=== PATIENT | female | born 1970 | race Caucasian/White ===

== ENCOUNTER 2023-06-06 16:32 | Observation (INO) | payer OTHER, SELFPAY ==
[2023-06-06] VITALS (7 sets, daily range): BP systolic 93–111; BP diastolic 56–73; PULSE 73–79; RESP 16–21; TEMP 36.6; O2SAT 97–100; BMI 21.4
--- NOTE | 2023-06-06 16:45 | XRR_ITS ---
PROCEDURE INFORMATION: Exam: XR Chest Exam date and time: 06/06/2023 5:08 PM Age: 52 years old Clinical indication: Pain; Chest pressure; Additional info: Cp TECHNIQUE: Imaging protocol: Radiologic exam of the chest. Views: 1 view. COMPARISON: CR XR ribs LT mn 3V w CXR1V [id number] 09/08/2019 10:54 PM FINDINGS: Lungs: Unremarkable. No consolidation. Pleural spaces: Unremarkable. No pleural effusion. No pneumothorax. Heart/Mediastinum: Unremarkable. No cardiomegaly. Bones/joints: Unremarkable. XR/XR chest 1V portable [id number] IMPRESSION: No acute findings.
--- NOTE | 2023-06-06 17:12 | ECG_ITS ---
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 Measurements Intervals [place] Rate: 72 P: 55 GA: 136 QRS: 58 QRSD: 81 T: 87 QT: 395 QTc: 434 Interpretive Statements SINUS RHYTHM WITH SINUS ARRHYTHMIA MODERATE ST DEPRESSION [0.05+ mV ST DEPRESSION] T WAVE INVERSION, CONSIDER LATERAL ISCHEMIA Compared to ECG 06/06/2023 16:44:27 No significant changes Electronically Signed On 06-07-2023 13:57:05 CDT by Dipti Mckenna M.D. [id number]
[2023-06-06] MEDS: aspirin 81 mg Chew Tablet 324 MG PO (17:27)
[2023-06-06] MEDS: nitroglycerin 1 gm/inch oint Pkt 0.5 INCH TOPICAL (17:28)
[2023-06-06] MEDS: morphine 4 mg/mL SDV 1 mL IVP (17:29)
[2023-06-06] MEDS: ondansetron 2 mg/ML SDV 2 mL 4 MG IVP (17:30)
[2023-06-06 17:36] LABS: Basophils % 0.3 %; Eosinophils # 0.1 10^3/uL (0.0-0.8); Eosinophils % 0.6 %; Hematocrit 42.7 % (36-47); Lymphocytes # 3.6 10^3/uL (0.8-4.8); Lymphocytes % 27.8 %; Mean Corpuscular HGB Conc 33.5 g/dL (30-55); Mean Corpuscular Volume 92.4 fl (85-98); Mean Platelet Volume 10.5 fL (7.4-10.4); Monocytes # 0.6 10^3/uL (0.2-0.9); Monocytes % 4.7 %; Neutrophils # 8.45 10^3/uL (1.8-7.7); Neutrophils % 65.7 %; Nucleated Red Blood Cells % 0 %; Platelet Count 315 10^3/cmm (157-399); Red Blood Count 4.62 10^6/uL (3.85-5.65); Red Cell Distribution Width 12.9 % (12.1-15.1); White Blood Count 12.86 10^3/uL (3.29-11.43)
[2023-06-06 17:48] LABS: INR 0.95 (0.8-1.2); Partial Thromboplastin Time 23.8 SECONDS (23.9-36.7)
[2023-06-06 17:51] LABS: Alanine Aminotransferase 16 U/L (0-33); Albumin Level 4.4 g/dL (3.5-5.2); Alkaline Phosphatase 124 U/L (35-105); Aspartate Amino Transferase 16 U/L (0-32); Blood Urea Nitrogen 11 mg/dL (6-20); Carbon Dioxide 17 mmol/L (22-29); Chloride 104 mmol/L (98-107); Globulin 2.6 g/dL (1.3-4.6); Glucose 156 mg/dL (65-115); Osmolality Calculated 291 mOsm/kg (285-295); Sodium 139 mmol/L (136-145); Total Bilirubin 0.3 mg/dL (0.15-1.2); Troponin(5th) Baseline 6 ng/L (0-10)
[2023-06-06] MEDS: sodium chloride 0.9% 1,000 ML 999 ML IV (18:39)
--- NOTE | 2023-06-06 18:45 | ECG_ITS ---
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 Measurements Intervals [place] Rate: 71 P: 43 CA: 133 QRS: 63 QRSD: 85 T: 98 QT: 402 QTc: 438 Interpretive Statements SINUS RHYTHM WITH SINUS ARRHYTHMIA MODERATE ST DEPRESSION [0.05+ mV ST DEPRESSION] No previous ECG available for comparison Electronically Signed On 06-06-2023 19:29:44 CDT by Venkata Garcia M.D. [email or web address].[employer]/store/Om/[id number]
--- NOTE | 2023-06-06 19:31 | W.ED.CHESTPA ---
HPI - Chest Pain General: Chief Complaint: Chest Pain Stated Complaint: tingling in left hand,chest pains Time Seen by Provider: 06/06/23 17:18 History of Present Illness: 52-year-old female with history of tobacco abuse presents emergency room with sudden onset chest pain that started around 3:30 PM while at a local nail salon. Continue a friend patient developed chest pain and described the pain as substernal chest pain with severity of 7 out of 10 and became diaphoretic and started vomiting. Upon present emergency room patient was having pain and described the pain as sharp sensation with severity of 2 out of 10. Patient revealed some nausea but no vomiting at this time. Patient denies any history of coronary disease, coughing, coughing up blood or vomiting blood. Leg swelling or calf tenderness. No sick contacts or foreign travel. Associated symptoms: Reports diaphoresis; Deny fever(s), palpitations or syncope Review of Systems General: Reports: 10 or more systems reviewed and unremarkable except in HPI and below Const: Reports: diaphoresis; Denies: fever(s), chills, body aches, change in appetite, change in weight, fatigue or malaise Card: Reports: chest pain; Denies: palpitations, irregular heart rhythm, edema, swelling of feet/ankles, lightheadedness, syncope, pre-syncope, dyspnea on exertion, orthopnea, leg pain with exertion or acrocyanosis Neuro: Denies: headache(s), numbness in extremities, sensory changes or lack of coordination Physical Exam Const: COMMON NORMALS: no acute distress, average body habitus, patient oriented x3, no limitations, healthy appearing, alert and well nourished HENMT: COMMON NORMALS: normocephalic, atraumatic, hearing grossly normal bilaterally, external ears normal, EAC's normal, TM's normal bilaterally, Normal external nose present, Normal nasal mucous membranes and turbinates present, moist oral mucous membranes, oropharynx normal, dentition normal and gingiva normal HEAD & SCALP: normocephalic and atraumatic NOSE: Normal external nose present and Normal nasal mucous membranes and turbinates present EXTERNAL EAR: Yes external ears normal EXTERNAL AUDITORY CANAL: EAC's normal TYMPANIC MEMBRANE: TM's normal bilaterally Neck/C-Spine: COMMON NORMALS: full ROM, no lymphadenopathy, supple, no meningeal signs, no JVD, Thyroid normal and No carotid bruits THYROID: Thyroid normal Chest: COMMONS NORMALS: normal inspection of the chest, normal palpation of entire chest wall, normal inspection of the breasts and normal palpation of the breasts Breast/axilla inspection: Yes normal inspection of the breasts BREAST/AXILLA PALPATION: Yes normal palpation of the breasts Resp: COMMON NORMALS: normal respiratory effort, No retractions, No use of accessory muscles, clear to auscultation bilaterally and percussion normal AUSCULTATION: clear to auscultation bilaterally PERCUSSION: percussion normal Cardio: COMMON NORMALS: no JVD Extremity: COMMON NORMALS: normal to inspection, full ROM, capillary refill normal, no joint enlargement, no clubbing, cyanosis or edema, no calf tenderness and no pedal edema Neuro: COMMON NORMALS: patient oriented x3 SENSORIUM/ORIENTATION: Yes alert MENINGEAL SIGNS: Yes no meningeal signs Course Vital Signs: Vital signs: Vital Signs Pulse Rate 74 06/06/23 19:03 Respiratory Rate 21 H 06/06/23 17:29 Blood Pressure 98/66 06/06/23 19:03 Pulse Oximetry 97 06/06/23 19:03 Oxygen Delivery Me thod Room Air 06/06/23 19:03 MDM - Chest Pain Medical Decision Making Patient made comfortable emergency room and had extensive work-up done including CBC, CMP and serial troponin. KG was reviewed and discussed with family. There was a concern for the EKG. I discussed the EKG finding with patient and family. Will be admitted for further evaluation and treatment. I discussed patient with the hospitalist. Will consult practice management consultant for further evaluation and treatment. Differential Diagnosis Likely acute massive pulmonary embolism, acute respiratory failure, acute myocardial infarction, cardiac arrest and sudden cardiac Lab Data 06/06/23 17:00 06/06/23 17:00 Radiology Impressions Chest X-Ray 06/06/23 16:45 IMPRESSION: No acute findings. Laboratory Results WBC 12.86 10^3/uL (3.29-11.43) H 06/06/23 17:00 RBC 4.62 10^6/uL (3.85-5.65) 06/06/23 17:00 Hgb 14.30 g/dL (11.27-16.99) 06/06/23 17:00 Hct 42.7 % (36-47) 06/06/23 17:00 MCV 92.4 fl (85-98) 06/06/23 17:00 MCH 31.0 pg (27-33) 06/06/23 17:00 MCHC 33.5 g/dL (30-55) 06/06/23 17:00 RDW 12.9 % (12.1-15.1) 06/06/23 17:00 Plt Count 315 10^3/cmm (157-399) 06/06/23 17:00 MPV 10.5 fL (7.4-10.4) H 06/06/23 17:00 Neut % (Auto) 65.7 % 06/06/23 17:00 Lymph % (Auto) 27.8 % 06/06/23 17:00 [place] % (Auto) 4.7 % 06/06/23 17:00 Eos % (Auto) 0.6 % 06/06/23 17:00 Baso % (Auto) 0.3 % 06/06/23 17:00 Neut # (Auto) 8.45 10^3/uL (1.8-7.7) H 06/06/23 17:00 Lymph # (Auto) 3.6 10^3/uL (0.8-4.8) 06/06/23 17:00 [place] # (Auto) 0.6 10^3/uL (0.2-0.9) 06/06/23 17:00 Eos # (Auto) 0.1 10^3/uL (0.0-0.8) 06/06/23 17:00 Baso # (Auto) 0.0 10^3/uL (0.0-0.1) 06/06/23 17:00 Nucleated RBC % (auto) 0 % 06/06/23 17:00 Nucleated RBCs # 0.0 /100WBC 06/06/23 17:00 PT 12.90 SECONDS (12.1-14.9) 06/06/23 17:00 INR 0.95 (0.8-1.2) 06/06/23 17:00 APTT 23.8 SECONDS (23.9-36.7) L 06/06/23 17:00 Sodium 139 mmol/L (136-145) 06/06/23 17:00 Potassium 4.0 mmol/L (3.5-5.1) 06/06/23 17:00 Chloride 104 mmol/L (98-107) 06/06/23 17:00 Carbon Dioxide 17 mmol/L (22-29) L 06/06/23 17:00 Anion Gap 22.0 (5-19) H 06/06/23 17:00 BUN 11 mg/dL (6-20) 06/06/23 17:00 Creatinine 1.0 mg/dL (0.5-0.9) H 06/06/23 17:00 GFR Calculation 58.0 mL/min (90-130) L 06/06/23 17:00 Glucose 156 mg/dL (65-115) H 06/06/23 17:00 Calculated Osmolality 291 mOsm/kg (285-295) 06/06/23 17:00 Calcium 10.0 mg/dL (8.5-10.5) 06/06/23 17:00 Total Bilirubin 0.3 mg/dL (0.15-1.2) 06/06/23 17:00 AST 16 U/L (0-32) 06/06/23 17:00 ALT 16 U/L (0-33) 06/06/23 17:00 Alkaline Phosphatase 124 U/L (35-105) H 06/06/23 17:00 Troponin T Baseline 6 ng/L (0-10) 06/06/23 17:00 Total Protein 7.0 g/dL (6.6-8.7) 06/06/23 17:00 Albumin 4.4 g/dL (3.5-5.2) 06/06/23 17:00 Globulin 2.6 g/dL (1.3-4.6) 06/06/23 17:00 XR interpretation done by ED provider, pending radiology final review EKG Data EKG 1: Interpretation: Patient was sinus bradycardia with a rate of 72. There was ST old inversion in V1 V2 and aVR. ST depression V5 V2. 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
[2023-06-06 20:41] LABS: Troponin 5 2HR 81.38 ng/L (0-10)
[2023-06-06 20:44] LABS: Troponin 5 2HR Delta 75.38 ABS# (0-10)
[2023-06-06] MEDS: enoxaparin 60 mg/0.6 mL Syringe 50 MG SUBCUT (20:45)
--- NOTE | 2023-06-06 20:54 | P.HP_ITS ---
Providers/Chief Complaint Admitting Physician: Karime Hernandez MD Chief Complaint: tingling in left hand,chest pains History of Present Illness Sadia Cifuentes is a 52 year old female with no significant past medical history but active smoker less than a pack a day since last 20 years presented with complaint of chest pain, uneasiness nausea vomiting and diarrhea since this afternoon. She reports she was seen by meals per when she suddenly started feeling burning midsternal chest pain 10 x 10, nonradiating, continuous for more than 30 minutes, no relieving factors and associated with nausea and vomiting x2, and diarrhea x1. Denies any fever cough cold shortness of breath bowel or urinary complaints but reports eating leftover restaurant food this morning. She never had similar complaints in the past Review of Systems Narrative: As per HPI Medications/Allergies Home Medications Medication Instructions Recorded Confirmed Last Taken Type No Known Home Medications 06/06/23 06/06/23 Unknown History Allergies Allergy/AdvReac Type Severity Reaction Status Date / Time No Known Allergies Allergy Verified 06/06/23 16:52 Vitals/I&O/Wt Last Vital Signs Pulse 74 06/06/23 19:03 Resp 21 H 06/06/23 17:29 BP 98/66 06/06/23 19:03 Pulse Ox 97 06/06/23 19:03 O2 Del Method Room Air 06/06/23 20:39 06/06/23 06/06/23 06/06/23 06:59 14:59 22:59 Intake Total 1000 / 1000 Balance 1000 / 1000 Weight last 48 hrs Weight 55.747 kg Weight 49.895 kg Physical Exam Narrative: She is alert awake oriented x3 not in acute distress, thin built chest pain resolved but still had vomiting x1 in ER. Chest clear to auscultation bilaterally Cardiovascular normal heart sounds regular rhythm Abdomen soft nontender nondistended normal bowel sounds Extremities no pedal edema seen Data 06/06/23 17:00 06/06/23 17:00 CXR: Radiologist's impression: No acute findings EKG 1: My Interpretation: Normal sinus rhythm Normal axis ST depressions in lead I, aVL, V1 and V2. A&P Assessment and plan (1) NSTEMI (non-ST elevated myocardial infarction): Plan 52-year-old female with no significant past medical history but active smoker presented with midsternal chest pain nausea and vomiting since this afternoon and was found to have ST depressions in EKG and elevated troponins secondary to NSTEMI Nausea and vomiting likely secondary to acute gastroenteritis Will give IV fluids normal saline at 75 mL/h IV Pepcid 20 mg every 12 hours and IV Zofran 4 mg every 8 hours for nausea and vomiting Liquid diet for now EKG changes and elevated troponins , cannot rule out NSTEMI Dr. Garcia cardiology, aware of the patient We will follow-up serial troponins and EKG Received aspirin 325 mg , nitroglycerin patch 0.5 and morphine 2 mg in ER. Will give subcutaneous Lovenox 50 mg x 1 dose now, atorvastatin 40 mg x 1. Continue to monitor for now. She is full code Attestations Medical Necessity Statement*: She needs continued hospitalization for 2 days for further work-up for elevated troponins and EKG changes Time Spent in Patient Care: 30 minutes Coding Level of Care Code [facility] N[facility]I (non-ST elevated myocardial infarction) I21.4 Time Spent (min) 30
[2023-06-06] MEDS: sodium chloride 0.9% 1,000 ML 75 ML IV (21:46)
[2023-06-06] MEDS: atorvastatin 40 mg Tablet PO (21:48)
[2023-06-06] MEDS: famotidine 20 mg/2 mL INJ IVP (21:48)
--- NOTE | 2023-06-06 22:39 | ECG_ITS ---
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 Measurements Intervals [place] Rate: 60 P: 27 NM: 124 QRS: 34 QRSD: 80 T: 80 QT: 409 QTc: 410 Interpretive Statements SINUS RHYTHM LOW QRS VOLTAGE IN PRECORDIAL LEADS [QRS DEFLECTION < 1.0 mV IN CHEST LEADS] POSSIBLE ANTERIOR MYOCARDIAL INFARCTION , OF INDETERMINATE AGE [30 ms Q WAVE IN V3/V4, OR R < 0.2 mV IN V4] Compared to ECG 06/06/2023 17:12:41 Low QRS voltage now present Myocardial infarct finding now present Sinus arrhythmia no longer present ST (T wave) deviation no longer present Electronically Signed On 06-07-2023 13:55:40 CDT by Dipti Mckenna M.D. [id number]
[2023-06-06 23:51] LABS: Troponin 5 6HR 165.3 ng/L (0-10); Troponin 5 6HR Delta 159.3 ng/L (0-12)
[2023-06-07] VITALS (55 sets, daily range): BP systolic 77–111; BP diastolic 42–72; PULSE 53–96; RESP 14–29; TEMP 36.7–37.2; O2SAT 87–94
[2023-06-07] MEDS: heparin 5,000 unit/mL INJ 1 mL IV (00:24)
[2023-06-07] MEDS: heparin drip 25,000 UNIT/500 ML PREMIX 16 UNIT IV (00:25)
[2023-06-07 07:11] LABS: Alanine Aminotransferase 22 U/L (0-33); Albumin Level 3.5 g/dL (3.5-5.2); Alkaline Phosphatase 88 U/L (35-105); Anion Gap 14.4 (5-19); Aspartate Amino Transferase 65 U/L (0-32); Blood Urea Nitrogen 13 mg/dL (6-20); Calcium 8.6 mg/dL (8.5-10.5); Carbon Dioxide 19 mmol/L (22-29); Chloride 111 mmol/L (98-107); Globulin 2.3 g/dL (1.3-4.6); Glomerular Filtration Rate 104.6 mL/min (90-130); Glucose 138 mg/dL (65-115); Magnesium 1.9 mg/dL (1.7-2.3); Osmolality Calculated 292 mOsm/kg (285-295); Potassium 4.4 mmol/L (3.5-5.1); Sodium 140 mmol/L (136-145); Total Bilirubin 0.4 mg/dL (0.15-1.2); Total Protein 5.8 g/dL (6.6-8.7)
[2023-06-07 07:25] LABS: Partial Thromboplastin Time 240.8 SECONDS (23.9-36.7)
[2023-06-07 07:27] LABS: Basophils % 0.2 %; Hematocrit 35.8 % (36-47); Lymphocytes # 1.5 10^3/uL (0.8-4.8); Mean Corpuscular HGB Conc 32.7 g/dL (30-55); Mean Corpuscular Volume 94.7 fl (85-98); Monocytes # 0.4 10^3/uL (0.2-0.9); Monocytes % 4.2 %; Neutrophils # 8.45 10^3/uL (1.8-7.7); Neutrophils % 81.3 %; Nucleated Red Blood Cells % 0 %; Platelet Count 211 10^3/cmm (157-399); Red Blood Count 3.78 10^6/uL (3.85-5.65); Red Cell Distribution Width 13.3 % (12.1-15.1); White Blood Count 10.39 10^3/uL (3.29-11.43)
[2023-06-07 07:52] LABS: NT Pro B Type Natriuretic Pept 1105 pg/mL (0-125)
--- NOTE | 2023-06-07 08:32 | ECG_ITS ---
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 Measurements Intervals [place] Rate: 67 P: 40 NV: 121 QRS: 42 QRSD: 89 T: 58 QT: 390 QTc: 412 Interpretive Statements SINUS RHYTHM WITH FREQUENT PVC'S IN BIGEMINAL PATTERN LOW QRS VOLTAGE IN PRECORDIAL LEADS [QRS DEFLECTION < 1.0 mV IN CHEST LEADS] ABNORMAL RHYTHM ECG Compared to ECG 06/06/2023 22:49:26 Myocardial infarct finding no longer present Electronically Signed On 06-07-2023 13:49:01 CDT by Dipti Mckenna M.D. [id number]
--- NOTE | 2023-06-07 08:53 | PC.CHAP ---
Pastoral Care Encounter/Spiritual Assessment Type of Contact [] Declined imaging system administrator visit [] Patient/Family/Request visit [] Outpatient visit [] Follow-up visit [] Physician referral [] Code/Alert [x] Routine visit [] Staff referral [] Actively dying [] Patient sleeping [] Family support [] [] Out of room [] Palliative care [] [] Receiving care in room [] Pre-surgical visit [] Trauma [] Long length of stay [] ICU visit [] Other: Relational/Emotional Strength [x] Patient feels connected with others/family/visitors/staff [] Distress [] Loneliness/isolation [] Abandonment Spirituality of Patient [x] Person of Haley [] Attends Church of their Haley [x] Believes in Prayer [] Reads Bible or Anabaptist materials [] There are Spiritual issues to be addressed [employer] Interventions [x] Prayer [] Active listening [] Non-anxious presence [x] Spiritual/emotional support [] Crisis/trauma care [] Spiritual counseling [] Bereavement support [] Provided bereavement packet [] Provided Bible/devotional materials [] Provided toy/stuffed animal, coloring book to patient or family member [] Provided Communion [] Anointing/[place] [] Salvation [x] Completed spiritual assessment [] Other: Impact on Illness or Injury [] Angry [] Fearful [] Anxious [] Often cries [] Exhaustion [] Unable to work [] Unable to attend presybeterian [] Unable to walk/stand [] Unable to read [] Unable to drive [] Unable to eat/drink [] Unable to sleep [] Unable to be with family [] Patient intubated [] Other: Summary Time spent with patient 5 min
--- NOTE | 2023-06-07 08:56 | P.CONIM_ITS ---
Providers/Reason For Consult Consulting Physician/Specialty*: Bala Shook, Cardiology Reason for Consult*: NSTEMI Attending Physician: Agustin Mars MD History of Present Illness History of Present Illness Sadia Cifuentes is a 52 year old female who is a chronic active smoker (1/2 PPD x 30 years), h/o CAD in brother with CABG at age 49 years presented for evaluation of heart burn. She has been having heart more for several months. Yesterday, she was at [facility] and started having heart burn retrostrenal in location, followed by nausea/vomiting and then came to the hospital for further evaluation. EKG showed T wave inversion in lateral leads and poor anterior R wave progression. Troponin T increased from 6-->81->165. She continues to have intermittent heart more at this time. Her and son at bedside at the the time of evaluation. Review of Systems Const: Denies: fever(s), chills, change in appetite, change in weight, fatigue or malaise Eyes: Denies: change in vision ENMT: Denies: throat pain, swelling of lips/tongue, oral sores, bleeding gums, nasal congestion or epistaxis Card: Reports: chest pain; Denies: edema, lightheadedness, syncope, dyspnea on exertion or orthopnea Resp: Denies: dyspnea or chest congestion GI: Denies: abdominal pain, nausea, vomiting, hematemesis, diarrhea, constipation, change in bowel habits, hematochezia or melena : Denies: difficulty voiding, dysuria, oliguria or hematuria Musc: Denies: back pain, extremity swelling, joint pain or muscle weakness Skin/Breast: Denies: rash or erythema Neuro: Reports: headache(s) (Upon waking) Psych: Denies: anxiety, depression or irritability Endo: Denies: tired all the time Brent/Lymph: Denies: easy bruising, easy bleeding, petechiae or purpura All/Imm: Denies: throat swelling, tongue swelling or acute wheezing Medications/Allergies Home Medications Medication Instructions Recorded Confirmed Last Taken Type No Known Home Medications 06/06/23 06/06/23 Unknown History Allergies Allergy/AdvReac Type Severity Reaction Status Date / Time No Known Allergies Allergy Verified 06/06/23 16:52 Current Medications Generic Name Dose Route Start Last Admin Trade Name Freq PRN Reason Stop Dose Admin Atorvastatin Calcium 40 mg 06/06/23 21:15 06/06/23 21:48 Atorvastatin 40 Mg Tablet PO 40 mg BEDTIME ANDRZEJ Administration Famotidine 20 mg 06/06/23 21:15 06/06/23 21:48 Famotidine 20 Mg/2 Ml Inj IVP 20 mg Q12H ANDRZEJ Administration Heparin Sodium (Porcine) 0 unit 06/06/23 23:57 06/07/23 00:24 Heparin 5,000 Unit/Ml Inj 1 Ml IV 2,800 unit PRN PRN Administration Heparin weight-base protocol Protocol Sodium Chloride 1,000 mls @ 75 mls/hr 06/06/23 21:15 06/06/23 21:46 Sodium Chloride 0.9% IV 75 mls/hr .[id number] ANDRZEJ Administration Heparin Sodium/Sodium Chloride 25,000 unit in 500 mls @ 0 mls/hr 06/07/23 00:15 06/07/23 00:25 Heparin Drip IV 14.35 unit/kg/hr .Q0M ANDRZEJ 16 mls/hr Administration Protocol Per Protocol PFSH Acute PFSH: Medical History Tobacco dependency Family History (Updated 06/07/23 @ 11:40 by Dipti Mckenna MD) Brother CAD (coronary artery disease), Onset Age: 50 CAD, needed bypass sx Social History (Updated 06/07/23 @ 11:41 by Dipti Mckenna MD) Smoking and tobacco status: current every day smoker cigarettes Packs smoked per day: 0.5 Years cigarettes smoked: 30 Vitals/I&O/Wt Last Vital Signs Temp 98.1 F 06/07/23 04:00 Pulse 64 06/07/23 08:00 Resp 23 H 06/07/23 08:00 BP 81/53 06/07/23 08:00 Pulse Ox 93 06/07/23 08:00 O2 Del Method Room Air 06/07/23 08:00 06/06/23 06/07/23 06/07/23 22:59 06:59 14:59 Intake Total 1120 / 1120 200 / 1320 Output Total Balance 1120 / 1120 199 / 1319 Weight last 48 hrs Weight 122 lb 14.4 oz Weight 110 lb Physical Exam Narrative: GENERAL: Averagely built and averagely nourished in no acute distress HEENT: Extraocular movement intact. No pallor or icterus. NECK: central trachea, No JVD. No carotid bruit. CARDIOVASCULAR SYSTEM: S1-S2 regular. No S3 or S4 present. No murmur rubs or g allops. RESPIRATORY SYSTEM: Chest clear to auscultation. No wheezes rhonchi or rubs heard. No use of accessory muscles. ABDOMEN: Soft, nontender and nondistended. Normal bowel sounds present. EXTREMITIES: No cyanosis or edema. No signs of chronic venous insufficiency. 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 No focal neurological deficits. SKIN: Normal turgor and temperature. PSYCH: Normal insight and judgment. Data 06/07/23 06:38 06/07/23 06:38 A&P Assessment and plan (1) NSTEMI (non-ST elevated myocardial infarction): -continue ASA, statin -BP soft for beta michelle -on heparin gtt and NS@ 75 cc/hr -plan for echo Risks and benefits were discussed with the patients. Possible complications including risk of heart attack stroke and , coronary perforation, dissection, renal failure, possible need for dialysis, arrhythmia, cardiac tamponade and urgent CABG were discussed with the patient as well. Plan is to proceed for the procedure later today. (2) Tobacco dependency: advised on smoking cessation (3) Family history of coronary artery disease: Coding Level of Care Code 05243 Diagnoses NSTEMI (non-ST elevated myocardial infarction) I21.4 Tobacco dependency F17.200 Family history of coronary artery disease Z82.49
[2023-06-07] MEDS: aspirin 81 mg EC Tablet PO (09:15)
[2023-06-07] MEDS: famotidine 20 mg/2 mL INJ IVP (09:15)
--- NOTE | 2023-06-07 10:23 | PM.PN ---
Subjective Subjective: History and physical reviewed in detail. When I met the patient this morning she reported she had a little bit of discomfort, she related to not being able to eat. States she is slightly a lot nauseated. Not short of breath. Denies any radiation of discomfort. Medications: Reviewed: Yes Vitals/I&O/Wt Last Vital Signs Temp 98.1 F 06/07/23 04:00 Pulse 64 06/07/23 08:00 Resp 23 H 06/07/23 08:00 BP 81/53 06/07/23 08:00 Pulse Ox 93 06/07/23 08:00 O2 Del Method Room Air 06/07/23 08:00 06/06/23 06/07/23 06/07/23 22:59 06:59 14:59 Intake Total 1120 / 1120 200 / 1320 Output Total Balance 1120 / 1120 199 / 1319 Weight last 48 hrs Weight 55.747 kg Weight 49.895 kg Physical Exam Narrative: General exam no distress Neck is supple Cardiovascular regular rate and rhythm, no murmur Lungs clear Abdomen is soft, no mass Extremities no cyanosis clubbing or edema Data 06/07/23 06:38 06/07/23 06:38 Other Labs: EKG reviewed by me this morning demonstrates sinus rhythm, normal axis, T wave flattening laterally, occasional junctional beats with retrograde P wave in a bigeminal pattern. Small Q waves are noted inferiorly. I reviewed her chest x-ray. No infiltrate. PT, PTT reviewed. Gave instructions to nurse regarding heparin drip. Troponins reviewed. Baseline 6, 6-hour 165 A&P Assessment and plan (1) NSTEMI (non-ST elevated myocardial infarction): Patient presents with chest discomfort. Significant troponin elevation is noted, with positive delta. This is consistent with non-ST elevation myocardial infarction. Statin, aspirin, heparin drip has been initiated Cardiology consultation, they will determine regarding need for Plavix or load of Plavix Not candidate for beta-michelle currently secondary to bradycardia, lower blood pressures Check echocardiogram With significant troponin elevation, high risk patient. PTT per protocol for heparin anticoagulation CBC, CMP in the a.m. Reviewed case with cardiology, who will be evaluating her. (2) Tobacco dependency: Encourage abstinence Plan Full code currently Heparin will suffice for DVT prophylaxis Attestations Medical Necessity Statement*: Needs continued hospitalization for definitive exploration of non-ST elevation myocardial infarction Diagnoses NSTEMI (non-ST elevated myocardial infarction) I21.4 Tobacco dependency F17.200
--- NOTE | 2023-06-07 10:29 | USCV_ITS ---
Sadia Cifuentes Age: 52 Gender: F : 1970 Exam Date: 06/07/2023 11:27 Ordering Phys: Agustin Mars MD Technologist: Giuseppe Huynh Exam Location: [facility] [place] Indication: chest pain BP: 87 / 59 HR: 69 Rhythm: Sinus Technical Quality: Adequate MEASUREMENTS (Male / Female) Normal Values 2D ECHO LVOT Diameter 2.0 cm LV Ejection Fraction MOD 2C 52.9 % LV Ejection Fraction 2C AL 50.0 % LA Diameter 3.1 cm LA Width 2.8 cm LA Height 3.0 cm RA Width 2.5 cm RA Height 2.7 cm Aorta at Sinotubular Diameter 2.1 cm IVC Diameter 1.7 cm M-MODE Aortic Annulus Diameter 2.0 cm LA Ao Ratio MM 1.5 MV E Point Septal Separation 0.2 cm DOPPLER AV Peak Velocity 92.0 cm/s LVOT Peak Velocity 89.0 cm/s AV Area Cont Eq vti 2.5 cm squared AV Area Cont Eq pk 3.0 cm squared MV Peak Velocity 99.0 cm/s MV Area PHT 6.9 cm squared Mitral E to A Ratio 1.5 MV E' Velocity 48.5 cm/s Mitral E to MV E' Ratio 9.5 Mitral E to LV E' Lateral Ratio 9.7 Mitral E to LV E' Septal Ratio 9.3 TR Peak Velocity 213.0 cm/s TR Peak Gradient 18.2 mmHg TR Mean Velocity 159.7 cm/s TR Mean Gradient 11.5 mmHg TR Velocity Time Integral 60.1 cm Right Atrial Pressure 3.0 mmHg Pulmonary Artery Systolic Pressu 21.2 mmHg PV Peak Velocity 53.7 cm/s RV Acceleration Time 0.1 s RV Ejection Time 0.3 s RV AcT/ET 0.5 FINDINGS Left Ventricle Normal left ventricular cavity size. Mildly decreased left ventricular systolic function. Left ventricular ejection fraction is estimated at 50 %. There is severe hypokinesis of basal to apical inferior, basal to mid inferoseptala nd apical septal patel. Normal diastolic function. Right Ventricle Normal right ventricular size and systolic function. Right ventricular systolic pressure 21.2 mmHg. Right Atrium Normal right atrial size. Left Atrium Normal left atrial size. Mitral Valve Mildly thickened mitral valve. No mitral valve stenosis. Trace mitral valve regurgitation. Aortic Valve Aortic valve not well visualized. No aortic valve stenosis. No aortic valve regurgitation. Tricuspid Valve Structurally normal tricuspid valve. Trace tricuspid valve regurgitation. Pulmonic Valve Structurally normal pulmonic valve. No pulmonary valve stenosis. Trace pulmonary valve regurgitation. Pericardium No pericardial effusion. Aorta Normal size aortic root and proximal ascending aorta. IVC Normal IVC dimension with >50% respiratory change of the inferior vena cava. CONCLUSIONS 1. Normal left ventricular cavity size. Mildly decreased left ventricular systolic function. Left ventricular ejection fraction is estimated at 50 %. There is severe hypokinesis of basal to apical inferior, basal to mid inferoseptala nd apical septal patel. Normal diastolic function. 2. No prior similar studies to compare. Dipti Mckenna MD (Electronically Signed) Final Date: 07 June 2023 13:44 S
--- NOTE | 2023-06-07 10:38 | XACV_ITS ---
Exam Room: [facility] Ht: 152 cm Wt: 55 kg BSA: 1.54 m2 Gender: Female : 1970 Any Known Allergies: No known allergies Exam Priority: Routine Indication(s): - Non-ST elevation OR Procedure(s): Procedure Description: Diagnostic procedure Procedure Description: PCI procedure Procedure Description: Left Heart Catheterization Procedure Description: Left ventriculography Procedure Description: Drug Eluting Coronary Stent Procedure Description: PTCA Procedure Description: Coronary Angiography Procedure Description: Pressure Wire Diagnostic Cath Status: Urgent Diagnostic Findings * 52 yo woman with PMHx of CAD, h/o CAD in brother and smoking presented to the hospital with NSTEMI. * Coronary angiography shows right dominance. * Left Main has no disease. 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 Some left to left collaterals noted. * First Obtuse Marginal Branch Segment: Mid segment with obstructive 60- 70% stenosis, BECCA: 3 flow. * Proximal Right Coronary Artery: obstructive 100% stenosis. faint collaterals noted from left to distal RCA. * Case was discussed and images were reviewed with Dr. Garcia. He took over patient's management at this time. PCI Status: Urgent PCI LVEF Assessed: No PCI Indication: NSTE - ACS Interventional Findings * Patient presents to the hospital with chest pain and a non-ST segment elevation OR. Angiography a few moments ago revealed a thrombotic occlusion of the right coronary artery in the proximal portion. There is a minimal amount or trickle of flow distally. The LAD exhibits what appears to be a chronic total occlusion. There is a lesion in the mid first obtuse marginal branch which is at least moderate by visual estimate. After discussion with Dr. Mckenna and the patient's family we decided to make an attempt at intervention to the right, perform IFR on the circumflex marginal and intervene appropriately. We are trying to avoid open heart surgery at a young age. * A wire was fairly easily placed through the occlusion of the right coronary artery. Subsequently balloon angioplasty was performed which opened the vessel fairly nicely. It is a long thrombotic occlusion with minimal residual thrombus and a small linear dissection. Subsequently the vessel was stented using a 3.5 x 38 mm stent. An excellent angiographic result with good distal flow was obtained. * Next an IFR wire was placed across the obtuse marginal branch lesion. The IFR was checked twice. The value was 0.83. It was then subsequently stented primarily with a 3.0 x 8 mm stent with a good angiographic result. * I discussed this in detail with the patient's and son. Decision for PCI with Surgical Consult: No PCI for Multi-vessel Disease: Yes Multi-vessel Procedure Type: Initial PCI Conclusions 1. Chronic total occlusion of proximal left anterior descending artery. 2. Proximal right coronary artery with 100% long thrombotic occlusion. This underwent balloon angioplasty followed by drug eluting stent placement. 3. Mid segment of first obtuse marginal with moderate stenosis. This was found to be hemodynamically signficant by iFR (0.83) and underwent drug eluting stent placement. Recommendations * Return to inpatient for close monitoring and routine cath care. * Statin and aspirin 81mg lifelong, if tolerated. * Continue Plavix 75mg p.o. daily for at least one year. We will assess at the end of one year to determine continuation or not. Pressures Phase:Rest AO : 74 / 46 ( 58 ) @ 2:13:00 PM 71 / 53 ( 63 ) @ 2:14:00 PM 196 / 117 ( 103 ) @ 2:14:00 PM 67 / 50 ( 60 ) @ 2:15:00 PM 69 / 52 ( 62 ) @ 2:16:00 PM 76 / 59 ( 69 ) @ 2:16:00 PM 74 / 56 ( 65 ) @ 2:16:00 PM 81 / 64 ( 73 ) @ 2:21:00 PM 85 / 68 ( 77 ) @ 2:40:00 PM 66 / 49 ( 56 ) @ 2:42:00 PM 78 / 52 ( 63 ) @ 2:43:00 PM 81 / 65 ( 74 ) @ 2:45:00 PM -5 / -7 ( -7 ) @ 2:48:00 PM 97 / 55 ( 74 ) @ 3:02:00 PM 106 / 59 ( 75 ) @ 3:06:00 PM Clinical Evaluation EBL: 5mL-10mL Procedural Details Admit Source: In Patient. Current Diagnosis : NSTEMI. Procedure Consent Obtained. Pre-Procedure Time Out. Identified patient by full name and date of as verbalized by the patient/guarantor. Does the consent match the physician's order: Yes. Accurate & Complete Informed Consent: Yes. Inpatient/Outpatient History & Physical on Chart: Yes. If H&P is completed, is and addenduem needed: No; If yes, is the addendum complete: N/A. Visualize and Verify Site with Patient/Guarantor: N/A. Relevant Radiology Images available: Yes. Pre-op teaching completed and patient verbalized understanding. The risks, benefits, and alternatives of sedation and/or procedure were discussed by physician. The patient agrees to continue. Procedure started. Oxygen started at 2liters/min via nasal canula. right groin was prepped with chloroprep then draped in the usual sterile fashion. right radial was prepped with chloroprep then draped in the usual sterile fashion. Physician notified. Baseline sample Acquired. HR: 147 BPM. [facility] Clinical Fraility Score: 3: Managing Well. Lead Burner Indications: NONSTEMI. Chest Pain Symptom Assessment: Atypical Angina. Cardiovascular Instability: No, stable. Correct patient, site and procedure confirmed by cath team. Current diagnosis: NSTEMI. PERRLA. Strong, equal hand faculty dean bilaterally. Lungs clear x 5 lobes. IV Site on Arrival: 20 gauge in the right anticubital. IV Fluids: 0.9% NaCl at KVO. 200 mL infused prior to geophysical laboratory chief. Pre Procedural Pulses: bilateral posterior tibial was Doppled. Pre Procedural Pulses: bilateral dorsalis pedis was Doppled. Pre Procedural Pulses: bilateral radial was 3+. Baseline sample Acquired. HR: 78 BPM. Physician arrived. Family updated by MD prior to the start of the procedure. Physician scrubbed in. Immediate Pre-Procedure Time Out. Correct Patient: Yes; Correct Procedure: Yes; Correct Site: Yes; Correct Patient Position: Yes; Correct Supplies: Yes; Dried Flammable Prep: Yes; Blood Products Available: N/A;. Lidocaine 1% infiltrated to the right radial. Arterial access obtained. A 5 russian Syed catheter in over wire. IV fluids increased to 100 cc/hr per md order. Multiple views taken of right coronary artery. Patient was on heparing gtt prior to arrival. Shut off on CSU prior. No heparin indicated per MD. Catheter removed over the wire. A 5 russian JL4 catheter in over wire. Catheter removed over the wire. A 5 russian JL4 catheter in over wire. Catheter removed over the wire. Unalble to advance catheter for lcs from radial approach d/t spasm. Radial aborted. MD attempting to gain access from the right femoral approach. Lidocaine 1% infiltrated to the right groin. Arterial access obtained with micropuncture set. Unable to advance wire. Wire and needle removed. Md Holding pressure. Arterial access obtained with micropuncture set. Unable to advance wire. Wire and needle removed. Md Holding pressure. Arterial access obtained with micropuncture set. A 5 russian JL4 catheter in over wire. Multiple views taken of left coronary artery. Dr Garcia here to review films. MD's to discuss findings with family. Dr Mckenna scrubbed out. Sheath KVO to maintain patency. Physician scrubbed in. Starting intervention. Catheter removed over the wire. 6 russian JR 4 guide catheter was inserted over the wire. Guide seated in the RCA. Runthrough guidewire was advanced through the guide catheter to lesion in the prox RCA. Guidewire advanced across lesion. Inflation number : 1 A AB TREK 3.00X20 RX BALLOON was prepped and advanced across the Prox RCA , then inflated to 8 ROBERTA for 0:32 seconds. Inflation number: 2 The AB TREK 3.00X20 RX BALLOON was reinflated across the Prox RCA, to 8 ROBERTA for 0:31 seconds. Results checked. Balloon out over the wire. Inflation Number : 3 A MATT R NIVIA 3.5X38 ESTEVAN -Lot Number# [id number] prepped and advanced across the Prox RCA. The stent was deployed at 12 ROBERTA for 0:31 seconds. exp: 10/24/25. Results checked. Stent Balloon out. Wire out. Guide catheter out. 6 russian XB 3 guide catheter was inserted over the wire. Guide seated. IFR wire autozeroed. FFR guidewire was advanced through the guide catheter to lesion in the OM. Normalized proximal to the lesion in om1. IFR wire advanced across the lesion in the OM1. IFR spot obtained. 0.82 Repeated after flushing- 0.83. IFR wire removed. Runthrough wire inserted to the lesion in OM1. Guidewire advanced across the lesion. Trey [employer]UR[employer] OPERATOR scrubbed in. Astrid LEVINE scrubbed out. Trav LEVINE in as propulsion motor and generator repairer. Inflation Number : 1 A MDT R NIVIA 3.0X8 ESTEVAN -Lot Number#[id number] was prepped and advanced across the 1st Ob Hannah. The stent was deployed at 15 ROBERTA for 0:33 seconds. exp 12/25/2024. Results checked. Stent balloon out. Wire out. Guide catheter out. Physician review of films. Physician scrubbed out. A TR Band was successful obtaining hemostatsis at the Right Radial artery insertion site. A Suture was successful obtaining hemostatsis at the Right Femoral artery insertion site. TR band placed. Hemostasis obtained. Sheath(s) sutured into position with 2-0 silk and sterile 4x4's and Op-site applied over the site. No oozing or signs and symptoms of hematoma noted. Arterial sheath flushed and connected to tranducer and pressure bag with heparinized saline. Post Procedure: Pulses reassessed and unchanged. PERRLA. Strong, equal hand faculty dean bilaterally. No VTE prophylaxis required. Medication waste: Lidocaine- 2 ml. Nitro- 4.3 mg Heparin- 3000 units Fentanyl- 75 mcg. Total IV fluids: 500 mL. Fluoro: 17:02. Contrast type used: Omnipaque 300 mgI/mL, 500 mL bottle. [id number]. Post-op diagnosis: Coronary Artery Disease; NONSTEMI. Complications: None. Estimated blood loss: 5mL-10mL. Responsiveness - Normal response to verbal stimuli; alert and oriented, PERRLA. Airway - Unaffected, no intervention required; spontaneous ventilation. Circulation: W/N/L, pulses unchanged. Nausea/Vomiting: No. Procedure completed. Patient transferred by bed to 1st floor. Vital chart was stopped. Access Site Site: Right Radial artery Sheath Size: 6 Fr Hemostasis Method: TR Band Hemostasis Success: Successful Site: Right Femoral artery Sheath Size: 6 Fr Hemostasis Method: Suture Hemostasis Success: Successful Complication Findings: No complications occurred during the procedure. Intra/Post-Procedure Events Stroke - Undetermined: No Cardiac Arrest: No Procedure Medications Start: 12:02 PM Stop: 12:02 PM Medication: Zofran (ondansetron) Amount: 4 mg Route: I.V. Start: 12:24 PM Stop: 12:24 PM Medication: Versed 1 mg and Fentanyl 25 mcg Amount: 1 Route: I.V. Start: 12:30 PM Stop: 12:30 PM Medication: Nitrogylcerin Amount: 200 mcg Route: I.A. Start: 12:36 PM Stop: 12:36 PM Medication: Nitrogylcerin Amount: 100 mcg Route: I.A. Start: 12:40 PM Stop: 12:40 PM Medication: Versed Amount: 1 mg Route: I.V. Start: 12:43 PM Stop: 12:43 PM Medication: Heparin Amount: 2000 units Route: I.V. Start: 12:43 PM Stop: 12:43 PM Medication: Nitrogylcerin Amount: 200 mcg Route: I.A. Start: 12:46 PM Stop: 12:46 PM Medication: Verapamil Amount: 2.5 mg Route: I.A. Start: 12:51 PM Stop: 12:51 PM Medication: Nitrogylcerin Amount: 200 mcg Route: I.A. Start: 12:51 PM Stop: 12:51 PM Medication: Verapamil Amount: 2.5 mg Route: I.A. Start: 12:59 PM Stop: 12:59 PM Medication: Versed Amount: 1 mg Route: I.V. Start: 1:17 PM Stop: 1:17 PM Medication: 0.9% Saline Amount: 250 ml Route: I.V. bolus Start: 1:32 PM Stop: 1:32 PM Medication: Versed Amount: 1 mg Route: I.V. Start: 1:40 PM Stop: 1:40 PM Medication: Heparin Amount: 3000 units Route: I.V. Start: 2:07 PM Stop: 2:07 PM Medication: Versed Amount: 1 mg Route: I.V. Start: 2:21 PM Stop: 2:21 PM Medication: Plavix Amount: 600 mg Route: P.O. I, the attending physician, have reviewed and verified all procedure medications. Yes, all medications given per verbal order History/Risk Factors Hypertension: No Dyslipidemia: No Peripheral Arterial Disease (PAD): No Myocardial Infarction (OR): No Obesity: No Renal Disease: No Tobacco Use: Current/Recent(w/in 1 year) Prior Interventions PCI: No CABG: No Valve Surgery: No Report Signatures Diagnostic Workflow Finalized by Dipti Mckenna MD on 06/21/2023 12:21 PM Interventional Workflow Finalized by Dr. Venkata Garcia MD on 06/07/2023 02:31 PM
[2023-06-07] MEDS: sodium chloride 0.9% 1,000 ML 75 ML IV (11:28)
--- NOTE | 2023-06-07 12:15 | PC.NURSE ---
Pt taken to cardiac recyclable materials distributor for LHC at this time
[2023-06-07 17:14] LABS: Partial Thromboplastin Time 153.9 SECONDS (23.9-36.7)
[2023-06-07 18:51] LABS: Partial Thromboplastin Time 64.2 SECONDS (23.9-36.7)
[2023-06-07] MEDS: atorvastatin 40 mg Tablet PO (21:32)
[2023-06-07] MEDS: fentaNYL 50 mcg/mL INJ 2mL IVP (21:32)
--- NOTE | 2023-06-07 22:25 | PC.NURSE ---
Medicated patient for pre-procedure pain as ordered and documented. Initiated sheath removal from right groin per protocol at 2145. Hemostasis achieved immediately. Pressure maintained for 20min. VS remained within her normal limits as patient reports having a low BP normally. No s/s of bleeding or hematoma formation observed at this time. Covered site with 2x2 and bio-occlusive dressing. Instructed patient on site care and restrictions regarding right femoral and right radial. Patient verbalized complete understanding. Positioned patient for comfort.Will continue to monitor.
[2023-06-08] VITALS (8 sets, daily range): BP systolic 84–92; BP diastolic 51–55; PULSE 67–95; RESP 17–26; TEMP 36.9–37.5; O2SAT 86–94
[2023-06-08 05:07] LABS: Basophils % 0.3 %; Eosinophils % 0.4 %; Hematocrit 33.1 % (36-47); Lymphocytes % 29.7 %; Mean Corpuscular HGB Conc 32.3 g/dL (30-55); Mean Corpuscular Hemoglobin 31.3 pg (27-33); Mean Corpuscular Volume 96.8 fl (85-98); Mean Platelet Volume 10.4 fL (7.4-10.4); Monocytes # 0.6 10^3/uL (0.2-0.9); Monocytes % 5.6 %; Neutrophils # 6.42 10^3/uL (1.8-7.7); Neutrophils % 63.6 %; Nucleated Red Blood Cells % 0 %; Platelet Count 172 10^3/cmm (157-399); Red Blood Count 3.42 10^6/uL (3.85-5.65); Red Cell Distribution Width 13.8 % (12.1-15.1); White Blood Count 10.08 10^3/uL (3.29-11.43)
[2023-06-08 05:32] LABS: Cholesterol 143 mg/dL (0-200); HDL Cholesterol 26 mg/dL (60-100); LDL Cholesterol Calculated 89 mg/dL (50-129); LDL Cholesterol Direct 93 mg/dL (0-100); LDL HDL Ratio 3.42 RATIO (0.00-3.22); Triglycerides 140 mg/dL (0-150)
[2023-06-08 05:33] LABS: Alanine Aminotransferase 34 U/L (0-33); Albumin Level 3.1 g/dL (3.5-5.2); Alkaline Phosphatase 79 U/L (35-105); Anion Gap 11.6 (5-19); Aspartate Amino Transferase 96 U/L (0-32); Blood Urea Nitrogen 10 mg/dL (6-20); Calcium 8.2 mg/dL (8.5-10.5); Carbon Dioxide 21 mmol/L (22-29); Chloride 111 mmol/L (98-107); Globulin 1.9 g/dL (1.3-4.6); Glomerular Filtration Rate 87.5 mL/min (90-130); Glucose 92 mg/dL (65-115); Osmolality Calculated 289 mOsm/kg (285-295); Potassium 3.6 mmol/L (3.5-5.1); Sodium 140 mmol/L (136-145); Total Bilirubin 0.4 mg/dL (0.15-1.2)
--- NOTE | 2023-06-08 08:39 | PM.PN ---
Subjective Subjective: She underwent ESTEVAN placement to Px to mid RCA and OM1. 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 some episodes overnight with O2 sat dropping < 90 Medications: Reviewed: Yes Vitals/I&O/Wt Last Vital Signs Temp 99.5 F 06/08/23 07:31 Pulse 87 06/08/23 07:31 Resp 17 06/08/23 07:31 BP 91/52 06/08/23 07:31 Pulse Ox 86 L 06/08/23 07:31 O2 Del Method Room Air 06/08/23 07:31 06/07/23 06/08/23 06/08/23 22:59 06:59 14:59 Intake Total 1960 / 3103.589 300 / 3403.589 Output Total 1200 / 1200 Balance 760 / 1903.589 300 / 2203.589 Weight last 48 hrs Weight 122 lb 14.4 oz Weight 110 lb Physical Exam Narrative: GENERAL: Averagely built and averagely nourished in no acute distress HEENT: Extraocular movement intact. No pallor or icterus. NECK: central trachea, No JVD. No carotid bruit. CARDIOVASCULAR SYSTEM: S1-S2 regular. No S3 or S4 present. No murmur rubs or gallops. RESPIRATORY SYSTEM: Chest clear to auscultation. No wheezes rhonchi or rubs heard. No use of accessory muscles. ABDOMEN: Soft, nontender and nondistended. Normal bowel sounds present. EXTREMITIES: No cyanosis or edema. No signs of chronic venous insufficiency. Mild R wrist swelling, 2+ radial; no significant bruising or hematoma at R groin STATION DETECTIVE: Patient is alert oriented ?3. No focal neurological deficits. SKIN: Normal turgor and temperature. PSYCH: Normal insight and judgment. Data 06/08/23 04:46 06/08/23 04:46 A&P Assessment and plan (1) NSTEMI (non-ST elevated myocardial infarction): -continue ASA, plavix and statin -s/p ESTEVAN placement to px to mid RCA and Om1. 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 -May use lasix PO PRN at home Attestations Medical Necessity Statement*: May be discharged later today Coding Level of Care Code 38453 Diagnoses NSTEMI (non-ST elevated myocardial infarction) I21.4 CAD (coronary artery disease) I25.10 Tobacco dependency F17.200 Family history of coronary artery disease Z82.49
[2023-06-08] MEDS: aspirin 81 mg EC Tablet PO (08:51)
[2023-06-08] MEDS: clopidogrel 75 mg Tablet PO (08:51)
--- NOTE | 2023-06-08 09:42 | XRR_ITS ---
PROCEDURE INFORMATION: Exam: XR Chest Exam date and time: 06/08/2023 12:00 PM Age: 52 years old Clinical indication: Pain; Other: Tingling in left hand; Chest pressure; Additional info: Hypoxia TECHNIQUE: Imaging protocol: Radiologic exam of the chest. Views: 1 view. COMPARISON: CR XR chest 1V portable [id number] 06/06/2023 5:08 PM FINDINGS: Lungs: Mild left lower lung subsegmental atelectasis and/or scarring. No consolidation. Pleural spaces: Small left pleural effusion. No pneumothorax. Heart/Mediastinum: Unremarkable. No cardiomegaly. Bones/joints: Unremarkable. XR/XR chest 1V portable [id number] IMPRESSION: Small left pleural effusion and basilar atelectasis.
[2023-06-08 10:12] LABS: D Dimer 0.56 ug/mLFEU (0-0.59)
[2023-06-08] MEDS: FUROsemide 20 mg Tablet PO (11:20)
[2023-06-08] MEDS: potassium chloride ER 10 mEq Tablet PO (11:20)
[2023-06-08 12:20] LABS: Adenovirus Not Detected (NOT DETECT); Chlamydia Pneumoniae Not Detected (NOT DETECT); Coronavirus 229E,HKU1,NL63,OC4 Not Detected (NOT DETECT); Human Metapneumovirus Not Detected (NOT DETECT); Human Rhinovirus/Enterovirus Not Detected (NOT DETECT); Influenza A Not Detected (NOT DETECT); Influenza A H1 Not Detected (NOT DETECT); Influenza A H1-2009 Not Detected (NOT DETECT); Influenza A H3 Not Detected (NOT DETECT); Influenza B Not Detected (NOT DETECT); Mycoplasma Pneumoniae Not Detected (NOT DETECT); Parainfluenza Virus Type 1 Not Detected (NOT DETECT); Parainfluenza Virus Type 2 Not Detected (NOT DETECT); Parainfluenza Virus Type 3 Not Detected (NOT DETECT); Parainfluenza Virus Type 4 Not Detected (NOT DETECT); Respiratory Syncytial Virus A Not Detected (NOT DETECT); Respiratory Syncytial Virus B Not Detected (NOT DETECT); SARS-COV-2 Not Detected (NOT DETECT)
--- NOTE | 2023-06-08 14:46 | PM.DCS ---
Discharge Providers Date of Admission: 06/06/23 21:07 Date of Discharge: June 08, 2023 Attending Provider at Admission: Karime Hernandez MD Attending Provider at Discharge: Matthew Olivo Diagnoses at Discharge Discharge Diagnosis (1) NSTEMI (non-ST elevated myocardial infarction): Status: Acute (2) CAD (coronary artery disease): Status: Acute (3) Tobacco dependency: Status: Acute (4) Family history of coronary artery disease: Status: Acute Reason for Visit Reason for Visit: tingling in left hand,chest pains Hospital Course Hospital Course 52-year-old lady with smoking history was admitted for assessment management after presenting with chest pain, left arm tingling, nausea, vomiting and diarrhea, on admission with finding of NSTEMI, for which she was started on treatment, seen by cardiology, assessed by TTE with finding of 50% ejection fraction, severe hypokinesis of basal to apical inferior basal to mid inferoseptal and apical septal patel. Normal diastolic function. Nausea and vomiting was thought to be secondary to gastroenteritis. Treated conservatively including with bowel rest, antiemetic, Pepcid, IV fluid hydration. Blood pressure too soft for beta-michelle, continued aspirin, statin, underwent additional assessment by coronary angiography with placement of 2 ESTEVAN -RCA and OM1. 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 This morning she is doing well, no chest pain, no issues with access sites. Noted situation down into low 90s-high to mid 80s, chest x-ray with some atelectasis, small effusion, some signs of fluid overload. Received a dose of Lasix, on home oxygen evaluation) for oxygen. D-dimer obtained. Low suspicion and risk for PE. She knows not to stop aspirin and Plavix unless done under medical supervision or direction. Instructed to monitor blood pressures at home which she states usually around on the soft side. Not started on beta-michelle. Discussed also smoking cessation with her, continue to encourage. She declines nicotine supplementation at this time. Feels she will be able to quit on her own. Please revisit. Please reassess oxygenation, in case of any persistent issues with referral for pulmonary function testing. Physical Exam Narrative: Accompanied by her on second visit. Const: COMMON NORMALS: patient oriented x3 and alert GENERAL APPEARANCE: cooperative ORIENTATION/CONSCIOUSNESS: Yes awake HENMT: COMMON NORMALS: oropharynx normal Neck/C-Spine: COMMON NORMALS: no JVD Resp: COMMON NORMALS: normal respiratory effort and clear to auscultation bilaterally AUSCULTATION: clear to auscultation bilaterally Cardio: COMMON NORMALS: no JVD, regular rhythm, S1 normal heart sound present, S2 normal heart sound present and No murmurs present (Cardio) RHYTHM: regular rhythm HEART SOUNDS: S1 normal heart sound present and S2 normal heart sound present GI: COMMON NORMALS: Normal to inspection, nondistended, normoactive bowel sounds present, Soft to palpation and non-tender PALPATION: Yes Soft to palpation Extremity: COMMON NORMALS: no joint enlargement and no pedal edema Neuro: COMMON NORMALS: patient oriented x3 and moves all extremities SENSORIUM/ORIENTATION: Yes alert Skin: COMMON NORMALS: no rashes or lesions noted GENERAL SKIN EXAM: no rashes or lesions noted Discharge Data Studies Completed and Pending Completed Studies During Hospitalization Category Date Time Status CXRP [XR chest 1V portable [id number]] Routine Exams 06/08/23 09:42 Completed XR chest 1V portable [id number] Stat Exams 06/06/23 16:45 Completed CV. echo complete* [id number] Routine Ultrasound 06/07/23 10:29 Completed Pending at discharge Category Date Time Status PHYSICAL THERAPY PROFESSOR request for service Routine Exams 06/07/23 10:38 Taken Platelet Count Q2D Lab 06/10/23 04:00 Ordered Radiology Impressions Chest X-Ray 06/08/23 09:42 IMPRESSION: Small left pleural effusion and basilar atelectasis. Laboratory Results WBC 10.08 10^3/uL (3.29-11.43) 06/08/23 04:46 RBC 3.42 10^6/uL (3.85-5.65) L 06/08/23 04:46 Hgb 10.70 g/dL (11.27-16.99) L 06/08/23 04:46 Hct 33.1 % (36-47) L 06/08/23 04:46 MCV 96.8 fl (85-98) 06/08/23 04:46 MCH 31.3 pg (27-33) 06/08/23 04:46 MCHC 32.3 g/dL (30-55) 06/08/23 04:46 RDW 13.8 % (12.1-15.1) 06/08/23 04:46 Plt Count 172 10^3/cmm (157-399) 06/08/23 04:46 MPV 10.4 fL (7.4-10.4) 06/08/23 04:46 Neut % (Auto) 63.6 % 06/08/23 04:46 Lymph % (Auto) 29.7 % 06/08/23 04:46 [place] % (Auto) 5.6 % 06/08/23 04:46 Eos % (Auto) 0.4 % 06/08/23 04:46 Baso % (Auto) 0.3 % 06/08/23 04:46 Neut # (Auto) 6.42 10^3/uL (1.8-7.7) 06/08/23 04:46 Lymph # (Auto) 3.0 10^3/uL (0.8-4.8) 06/08/23 04:46 [place] # (Auto) 0.6 10^3/uL (0.2-0.9) 06/08/23 04:46 Eos # (Auto) 0.0 10^3/uL (0.0-0.8) 06/08/23 04:46 Baso # (Auto) 0.0 10^3/uL (0.0-0.1) 06/08/23 04:46 Nucleated RBC % (auto) 0 % 06/08/23 04:46 Nucleated RBCs # 0.0 /100WBC 06/08/23 04:46 PT 12.90 SECONDS (12.1-14.9) 06/06/23 17:00 INR 0.95 (0.8-1.2) 06/06/23 17:00 APTT 33.0 SECONDS (23.9-36.7) 06/07/23 21:10 D-Dimer 0.56 ug/mLFEU (0-0.59) 06/08/23 04:46 Sodium 140 mmol/L (136-145) 06/08/23 04:46 Potassium 3.6 mmol/L (3.5-5.1) 06/08/23 04:46 Chloride 111 mmol/L (98-107) H 06/08/23 04:46 Carbon Dioxide 21 mmol/L (22-29) L 06/08/23 04:46 Anion Gap 11.6 (5-19) 06/08/23 04:46 BUN 10 mg/dL (6-20) 06/08/23 04:46 Creatinine 0.7 mg/dL (0.5-0.9) 06/08/23 04:46 GFR Calculation 87.5 mL/min (90-130) L 06/08/23 04:46 Glucose 92 mg/dL (65-115) 06/08/23 04:46 Calculated Osmolality 289 mOsm/kg (285-295) 06/08/23 04:46 Calcium 8.2 mg/dL (8.5-10.5) L 06/08/23 04:46 Magnesium 1.9 mg/dL (1.7-2.3) 06/07/23 06:38 Total Bilirubin 0.4 mg/dL (0.15-1.2) 06/08/23 04:46 AST 96 U/L (0-32) H 06/08/23 04:46 ALT 34 U/L (0-33) H 06/08/23 04:46 Alkaline Phosphatase 79 U/L (35-105) 06/08/23 04:46 Troponin T Baseline 6 ng/L (0-10) 06/06/23 17:00 Troponin T 120 Minute 81.38 ng/L (0-10) H 06/06/23 19:59 Delta Troponin T 75.38 ABS# (0-10) H* 06/06/23 19:59 Troponin T Hi Sens 6Hr 165.3 ng/L (0-10) H 06/06/23 23:25 Troponin T Hi Sens 6Hr Delta 159.3 ng/L (0-12) H* 06/06/23 23:25 NT-Pro-B Natriuret Pep 1105 pg/mL (0-125) H 06/07/23 06:38 Total Protein 5.0 g/dL (6.6-8.7) L 06/08/23 04:46 Albumin 3.1 g/dL (3.5-5.2) L 06/08/23 04:46 Globulin 1.9 g/dL (1.3-4.6) 06/08/23 04:46 Triglycerides 140 mg/dL (0-150) 06/08/23 04:46 Cholesterol 143 mg/dL (0-200) 06/08/23 04:46 LDL Cholesterol Direct 93 mg/dL (0-100) 06/08/23 04:46 LDL Cholesterol, Calc 89 mg/dL (50-129) 06/08/23 04:46 HDL Cholesterol 26 mg/dL (60-100) L 06/08/23 04:46 LDL/HDL Ratio 3.42 RATIO (0.00-3.22) H 06/08/23 04:46 Cholesterol/HDL Ratio 5.50 mg/dL (0.0-4.40) H 06/08/23 04:46 Coronavirus 229E (PCR) Not detected (NOT DETECT) 06/08/23 10:00 SARS-CoV-2 (PCR) Not detected (NOT DETECT) 06/08/23 10:00 Vitals Last Vital Signs Temp 99.2 F 06/08/23 12:00 Pulse 82 06/08/23 12:00 Resp 21 H 06/08/23 12:00 BP 90/55 06/08/23 12:00 Pulse Ox 91 06/08/23 12:00 O2 Del Method Room Air 06/08/23 12:00 Discharge Plan Discharge Patient Disposition: Home Condition: Stable Prescriptions: New aspirin 81 mg Tablet,Delayed Release (Dr/Ec) 81 mg PO DAILY Qty: 90 0RF atorvastatin 40 mg Tablet 40 mg PO BEDTIME Qty: 90 0RF clopidogrel 75 mg Tablet 75 mg PO DAILY Qty: 90 0RF No Action No Known Home Medications Discharge Orders: Discharge Order (Routine); Ordered 06/08/23 Ordered By: Matthew Olivo Referrals: Maliha Don MD [Physician] - (Please call Dr. Don's Office on Saturday at [phone] to schedule a follow up appointment for 2 weeks. Thank you. Hypoxia, NSTEMI, smoking) Christine Bermudez FNP [Nurse Practitioner] - 06/21/23 9:15 am Dipti Mckenna MD [Physician] - 06/24/23 9:15 am Discharge Diet: Cardiac Discharge Activity: Limit activity as instructed Patient Instructions: Aspirin (By mouth) (Rui Extra Strength, Rui Aspirin Children's,..., Atorvastatin (By mouth) (Lipitor, Atorvaliq), Clopidogrel (By mouth) (Plavix), Coronary Artery Disease (DC), How to Stop Smoking (ED), Cigarette Smoking and Your Health (GEN), Coronary Angioplasty (DC), Post Angiogram Home Care Instructions, Post Heart Attack Stoplight Activity Restrictions/Additional Instructions: Do not lift anything more than 10 lbs for 1 week. Keep the site dry and clean Take medications as prescribed and follow up as scheduled. Please make sure to take aspirin Plavix and cholesterol medication, do not miss aspirin and Plavix doses for any reason unless directed by your doctor or done under medical supervision due to risk of stent closure and severe heart attack. Please stop smoking. Continue smoking will lead to continued risk of progression of coronary disease, heart attack, stroke, as well as lung disease, in addition to a number of cancers and other conditions. Please have your primary provider reassess your oxygenation, and consider referral for assessment of pulmonary function. Please use incentive spirometer for atelectasis, have your primary doctor reassess your lung imaging for resolution of atelectasis and small effusion. Monitor your blood pressure 3 times daily at home, write down values to bring to your appointment. Seek medical attention if your blood pressure is dropping below 90 systolic (top number or 50 diastolic (bottom number) or if you feel lightheaded, shortness of breath, chest pain or pressure. Seek medical attention in case of any worsening or new concerning symptoms. Discharge Attestations Time Spent in Discharge Care*: greater than 30 min Quality Metrics Clinical Quality Measures [ Acute Myocardial Infaction { Clinical Trial Participant: No; Contraindication to aspirin: None; Aspirin prescribed; Contraindication to statin: None; Statin prescribed; Contraindication to PCI: None; PCI performed;}] Coding Level of Care Code 43150 Total time (in minutes) for Discharge: 50 Diagnoses NSTEMI (non-ST elevated myocardial infarction) I21.4 CAD (coronary artery disease) I25.10 Tobacco dependency F17.200 Family history of coronary artery disease Z82.49
--- NOTE | 2023-06-08 16:39 | PC.NURSE ---
Discharge Note Patient discharged to [home] via [w/c to POV] accompanied by [spouse]. Discharge instructions reviewed with patient and/or disability representative. Mobile pharmacy medications and/or prescriptions provided. Belongings/home medications returned.
== END 2023-06-08 16:39 | disposition home or self-care (01) ==
LOC: ER 19:38 → CSU 20:09
PROVIDERS: Emergency Medicine; Internal Medicine; Internal Medicine Cardiovascular Disease; Admitting Provider Internal Medicine; Emergency Provider Family Medicine; Visit Provider Internal Medicine
DX: I21.4 Non-ST elevation (NSTEMI) myocardial infarction (principal); I25.10 Atherosclerotic heart disease of native coronary artery without angina pectoris; Z82.49 Family history of ischemic heart disease and other diseases of the circulatory system; I05.9 Rheumatic mitral valve disease, unspecified; F17.210 Nicotine dependence, cigarettes, uncomplicated
CPT/HCPCS: 36415; 71045; 80053; 80061; 83721; 83735; 83880; 84484; 85025; 85378; 85610; 85730; 87635; 93005; 93306; 93454; 93571; 94760; 96367; 96372; 96374; 96375; 96376; 99152; 99153; 99285; C1725; C1769; C1874; C1887; C1894; C9600; C9601; G0378; J1644; J1650; J2250; J2270; J2405; J3010; J3490; J7030; Q9967

== ENCOUNTER → 2023-06-21 10:05 | Outpatient (BNVA) | payer OTHER, SELFPAY | PROVIDERS: PCP Family Medicine; Visit Provider Nurse Practitioner Family | DX: I25.10 Atherosclerotic heart disease of native coronary artery without angina pectoris (principal); Z09 Encounter for follow-up examination after completed treatment for conditions other than malignant neoplasm | CPT/HCPCS: 36415; 80048 ==

== ENCOUNTER → 2023-08-07 11:20 | Outpatient (BNVA) | payer OTHER, SELFPAY | PROVIDERS: PCP Family Medicine; Visit Provider Internal Medicine Cardiovascular Disease | DX: I25.10 Atherosclerotic heart disease of native coronary artery without angina pectoris (principal); F17.200 Nicotine dependence, unspecified, uncomplicated; E78.5 Hyperlipidemia, unspecified; Z82.49 Family history of ischemic heart disease and other diseases of the circulatory system | CPT/HCPCS: 36415; 80053; 80061; 83721 ==

== ENCOUNTER 2023-10-02 18:34 | Emergency (ER) | payer OTHER, SELFPAY ==
[2023-10-02] VITALS (7 sets, daily range): BP systolic 90–118; BP diastolic 61–65; PULSE 99–112; RESP 16–17; TEMP 37.3; O2SAT 99–100; BMI 22.4
--- NOTE | 2023-10-02 19:02 | W.ED.SYNCOPE ---
HPI - Syncope General: Chief Complaint: Syncope Stated Complaint: Syncopal episode Time Seen by Provider: 10/02/23 19:01 History of Present Illness: 53-year-old female presents emerged department via EMS personnel with complaints of having 2 episodes of passing out and feeling lightheaded today. She states the initial episode was while she was sitting on a chair and smoking a cigarette. She states she did fall from the chair to the ground but denies hitting her head. She states she does have a dry nonproductive cough. She denies chest pain or shortness of breath. She states she did feel lightheaded just before passing out in the garage. She states she does have a history of coronary artery stent placement May 2023. She states she has been taking her anticoagulation Plavix and atorvastatin as well as a daily aspirin. She states that she has recently been exposed to sick contacts as she has a friend that she recently went shopping with that had a dry nonproductive cough at that time. Review of Systems General: Reports: 10 or more systems reviewed and unremarkable except in HPI and below Card: Reports: syncope Resp: Reports: non-productive cough PFSH ED PFSH: Medical History CAD (coronary artery disease) Tobacco dependency Family History Brother CAD (coronary artery disease), Onset Age: 50 CAD, needed bypass sx Social History Smoking and tobacco/nicotine status: current every day tobacco/nicotine user cigarettes Packs smoked per day: 0.5 Years cigarettes smoked: 30 Physical Exam Narrative: EXAM NARRATIVE: Constitutional: the patient appears well nourished and with normal development. Vital signs reviewed as documented. HENMT: Normocephalic, atraumatic. Extermal ears with normal appearance without drainage. Nose without drainage, normal appearance. Mucus membranes moist. Neck is supple, No jugular venous distension, trachea is midline, no appreciable carotid bruits. No lymphadenopathy. No meningeal signs. Flexion, extension and lateral rotation is without pain. Eyes: Pupils are equal, round, reactive to light and accommodation. No scleral icterus. Extra-ocular movement are intact. Thorax is symmetrical and with equal rise and fall with respirations. Resp: Lungs are clear to auscultation. No wheezes, rales, crackles or ronchi at present. Cardio: Regular rate and rhythm. Positive S1, S2. No appreciable murmurs, rubs or gallops. GI: Abdominal exam reveals normal bowel sounds to all quadrants. No organomegaly. No obvious palpable masses noted. No hepatomegally appreciated. Soft, nontender to palpation. Extremity: Extremities are non-edematous and both femoral and pedal pulses are 2+ and equal bilaterally. Moves all extremities well, sensation in all extremities. Neuro: Alert and oriented x4, person, place, time and situation. Cranial nerves II through XII are grossly intact, there is no focal neurological deficits that I can appreciate at present. Motor strength in the upper and lower extremities are equal and bilateral 5/5. Psych: Cooperative, calm, normal thought process, appropriate judgment. Skin: No lesions, rashes. No gross abnormalities noted. Back: Symmetrical, no obvious deformity, No CVA tenderness Course Vital Signs: Vital signs: Vital Signs Temperature 99.2 F 10/02/23 18:47 Pulse Rate 99 10/02/23 21:00 Respiratory Rate 16 10/02/23 21:00 Blood Pressure 118/62 10/02/23 21:00 Pulse Oximetry 100 10/02/23 21:00 Oxygen Delivery Me thod Room Air 10/02/23 21:00 MDM - Syncope Medical Decision Making Physical exam completed document I will obtain twelve-lead EKG, chest x-ray, CBC CMP and orthostatic vital signs. Will also obtain urinalysis to evaluate her contributing factors to her syncope. She is completely recovered now we will continue to monitor. Medical Records I reviewed the patient's medical records. Lab Data I reviewed the patient's lab results. 10/02/23 19:42 10/02/23 19:42 Radiology Impressions Chest X-Ray 10/02/23 19:11 IMPRESSION: No acute findings. Head CT 10/02/23 19:11 IMPRESSION: No acute intracranial abnormality. Laboratory Results WBC 5.16 10^3/uL (3.29-11.43) 10/02/23 19:42 RBC 4.50 10^6/uL (3.85-5.65) 10/02/23 19:42 Hgb 14.10 g/dL (11.27-16.99) 10/02/23 19:42 Hct 42.9 % (36-47) 10/02/23 19:42 MCV 95.3 fl (85-98) 10/02/23 19:42 MCH 31.3 pg (27-33) 10/02/23 19:42 MCHC 32.9 g/dL (30-55) 10/02/23 19:42 RDW 13.2 % (12.1-15.1) 10/02/23 19:42 Plt Count 208 10^3/cmm (157-399) 10/02/23 19:42 MPV 10.0 fL (7.4-10.4) 10/02/23 19:42 Neut % (Auto) 76.8 % 10/02/23 19:42 Lymph % (Auto) 14.1 % 10/02/23 19:42 [place] % (Auto) 8.3 % 10/02/23 19:42 Eos % (Auto) 0.0 % 10/02/23: Baso % (Auto) 0.4 % 10/02/23:42 Neut # (Auto) 3.96 10^3/uL (1.8-7.7) 10/02/23 19:42 Lymph # (Auto) 0.7 10^3/uL (0.8-4.8) L 10/02/23:42 [place] # (Auto) 0.4 10^3/uL (0.2-0.9) 10/02/23 19:42 Eos # (Auto) 0.0 10^3/uL (0.0-0.8) 10/02/23 19:42 Baso # (Auto) 0.0 10^3/uL (0.0-0.1) 10/02/23 19:42 Nucleated RBC % (auto) 0 % 10/02/23: Nucleated RBCs # 0.0 /100WBC 10/02/23 19:42 Sodium 138 mmol/L (136-145) 10/02/23 19:42 Potassium 4.0 mmol/L (3.5-5.1) 10/02/23 19:42 Chloride 103 mmol/L (98-107) 10/02/23 19:42 Carbon Dioxide 24 mmol/L (22-29) 10/02/23 19:42 Anion Gap 15.0 (5-19) 10/02/23 19:42 BUN 15 mg/dL (6-20) 10/02/23 19:42 Creatinine 0.8 mg/dL (0.5-0.9) 10/02/23 19:42 GFR Calculation 74.7 mL/min (90-130) L 10/02/23 19:42 Glucose 99 mg/dL (65-115) 10/02/23 19:42 Calculated Osmolality 287 mOsm/kg (285-295) 10/02/23 19:42 Calcium 9.3 mg/dL (8.5-10.5) 10/02/23 19:42 Total Bilirubin 0.4 mg/dL (0.15-1.2) 10/02/23 19:42 AST 24 U/L (0-32) 10/02/23 19:42 ALT 23 U/L (0-33) 10/02/23 19:42 Alkaline Phosphatase 103 U/L (35-105) 10/02/23 19:42 Troponin T Baseline 9 ng/L (0-10) 10/02/23 19:42 Troponin T 120 Minute 6.69 ng/L (0-10) 10/02/23 21:20 Delta Troponin T -2.31 ABS# (0-10) L 10/02/23 21:20 NT-Pro-B Natriuret Pep 72 pg/mL (0-125) 10/02/23 19:42 Total Protein 6.5 g/dL (6.6-8.7) L 10/02/23 19:42 Albumin 4.0 g/dL (3.5-5.2) 10/02/23 19:42 Globulin 2.5 g/dL (1.3-4.6) 10/02/23 19:42 All radiology interpretation(s) finalized by discharge EKG Data EKG 1: Interpretation: Twelve-lead EKG obtained at 1932 and reviewed at 1934 demonstrates sinus tachycardia with a ventricular rate of 100 bpm, ID interval 134, QRS duration 77 QT 321, QTc 378, there is no ST elevation or depression at present to demonstrate acute ischemia or infarction. Discharge Plan Discharge Patient Disposition: Home Clinical Impression: Syncope and collapse Condition: Stable Prescriptions: No Action atorvastatin 40 mg tablet 40 mg PO BEDTIME Qty: 90 3RF clopidogrel 75 mg tablet 75 mg PO DAILY Qty: 90 3RF aspirin 81 mg Tablet,Delayed Release (Dr/Ec) 81 mg PO DAILY Qty: 90 0RF Discharge Orders: Discharge ED (Routine); Ordered 10/02/23 Ordered By: Taras Vela Referrals: Maliha Don MD [Primary Care Provider] - Discharge Diet: Advance as tolerated Discharge Activity: Resume usual activity Patient Instructions: Opioid Safety, Pain Management Activity Restrictions/Additional Instructions: Activity Restrictions/Additional Instructions: Thank you for choosing [facility] for your healthcare needs today. Please realize that you were seen in the Emergency Department and that we are providing you with an emergency medical screening exam and this may not be a complete and all inclusive of all the testing and or medical work-up that you may need to determine your ailment or severity of your illness. It is very important that you follow-up as instructed with your Primary care provider or Specialist for additional evaluation and to discuss your medical treatment plan. You may return to the Emergency Department should you have concerns or if your condition changes or worsens in any way. Coding Level of Care Code ED Registered Physical Therapist for Ajit Sanches
--- NOTE | 2023-10-02 19:11 | CTR_ITS ---
PROCEDURE INFORMATION: Exam: CT Head Without Contrast Exam date and time: 10/02/2023 8:07 PM Age: 53 years old Clinical indication: Syncope and collapse TECHNIQUE: Imaging protocol: Computed tomography of the head without contrast. Radiation optimization: All CT scans at this facility use at least one of these dose optimization techniques: automated exposure control; mA and/or kV adjustment per patient size (includes targeted exams where dose is matched to clinical indication); or iterative reconstruction. COMPARISON: No relevant prior studies available. RADIATION DOSE METRICS: Total DLP (mGy-cm): 958.08 FINDINGS: Brain: Normal. No hemorrhage. Unremarkable white matter. No mass effect. Cerebral ventricles: No ventriculomegaly. Paranasal sinuses: Visualized sinuses are unremarkable. No fluid levels. Mastoid air cells: Visualized mastoid air cells are well aerated. Bones/joints: Unremarkable. No acute fracture. Soft tissues: Unremarkable. CT/CT head wo con* [id number] IMPRESSION: No acute intracranial abnormality.
--- NOTE | 2023-10-02 19:11 | XRR_ITS ---
PROCEDURE INFORMATION: Exam: XR Chest Exam date and time: 10/02/2023 7:37 PM Age: 53 years old Clinical indication: Other: Syncope TECHNIQUE: Imaging protocol: Radiologic exam of the chest. Views: 1 view. COMPARISON: CR (CHEST, ) 06/08/2023 12:00 PM FINDINGS: Lungs: Unremarkable. No consolidation. Pleural spaces: Unremarkable. No pleural effusion. No pneumothorax. Heart/Mediastinum: Unremarkable. No cardiomegaly. Bones/joints: Unremarkable. XR/XR chest 1V portable [id number] IMPRESSION: No acute findings.
--- NOTE | 2023-10-02 19:32 | ECG_ITS ---
[facility] Test Date: 2023-10-02 Pat Name: Sadia Cifuentes Department: Room: Gender: Female Sales/Marketing: : 1970 Requested By: Taras Vela Order Number: [id number] Mickie MD: Renaldo Manzano M.D. Measurements Intervals [place] Rate: 100 P: 35 TN: 134 QRS: 15 QRSD: 77 T: 0 QT: 321 QTc: 416 Interpretive Statements SINUS TACHYCARDIA LOW QRS VOLTAGE IN PRECORDIAL LEADS [QRS DEFLECTION < 1.0 mV IN CHEST LEADS] POSSIBLE INFERIOR MYOCARDIAL INFARCTION , PROBABLY OLD [30 ms Q WAVE IN II/aVF] ABNORMAL RHYTHM ECG Compared to ECG 06/07/2023 08:32:28 Myocardial infarct finding now present Sinus rhythm no longer present Electronically Signed On 10-03-2023 21:47:02 SPLITTER HEAD by Renaldo Manzano M.D. [id number]
[2023-10-02 20:07] LABS: Basophils % 0.4 %; Hematocrit 42.9 % (36-47); Lymphocytes # 0.7 10^3/uL (0.8-4.8); Lymphocytes % 14.1 %; Mean Corpuscular HGB Conc 32.9 g/dL (30-55); Mean Corpuscular Hemoglobin 31.3 pg (27-33); Mean Corpuscular Volume 95.3 fl (85-98); Monocytes # 0.4 10^3/uL (0.2-0.9); Monocytes % 8.3 %; Neutrophils # 3.96 10^3/uL (1.8-7.7); Neutrophils % 76.8 %; Nucleated Red Blood Cells % 0 %; Platelet Count 208 10^3/cmm (157-399); Red Cell Distribution Width 13.2 % (12.1-15.1); White Blood Count 5.16 10^3/uL (3.29-11.43)
[2023-10-02 20:29] LABS: Troponin(5th) Baseline 9 ng/L (0-10)
[2023-10-02 20:35] LABS: Alanine Aminotransferase 23 U/L (0-33); Alkaline Phosphatase 103 U/L (35-105); Aspartate Amino Transferase 24 U/L (0-32); Blood Urea Nitrogen 15 mg/dL (6-20); Calcium 9.3 mg/dL (8.5-10.5); Carbon Dioxide 24 mmol/L (22-29); Chloride 103 mmol/L (98-107); Globulin 2.5 g/dL (1.3-4.6); Glomerular Filtration Rate 74.7 mL/min (90-130); Glucose 99 mg/dL (65-115); NT Pro B Type Natriuretic Pept 72 pg/mL (0-125); Osmolality Calculated 287 mOsm/kg (285-295); Sodium 138 mmol/L (136-145); Total Bilirubin 0.4 mg/dL (0.15-1.2); Total Protein 6.5 g/dL (6.6-8.7)
[2023-10-02 21:44] LABS: Troponin 5 2HR 6.69 ng/L (0-10)
[2023-10-02 21:45] LABS: Troponin 5 2HR Delta -2.31 ABS# (0-10)
== END 2023-10-02 22:13 | disposition home or self-care (01) ==
PROVIDERS: Emergency Provider Internal Medicine; PCP Family Medicine
DX: R55 Syncope and collapse (principal); Z79.82 Long term (current) use of aspirin; Z79.02 Long term (current) use of antithrombotics/antiplatelets; I25.10 Atherosclerotic heart disease of native coronary artery without angina pectoris; Z72.0 Tobacco use
CPT/HCPCS: 36415; 70450; 71045; 80053; 83880; 84484; 85025; 93005; 99285